=== PATIENT | male | born 1960 | race African-American/Black ===

== ENCOUNTER 2017-06-01 17:01 | Emergency (ER) | payer MEDICARE, OTHER ==
[~2017-06-01] VITALS: Ht 172.7 cm; Wt 73.5 kg
--- NOTE | ~2017-06-01 | CR72 ---
[facility] A Service of [facility] & [facility] RADIOLOGY TEXT RESULTS PATIENT: GALDINO LOPEZ LOCATION: [facility] : 62 UNIT #: [id number] AGE: [address]: Wes Puckett DO SEX: M ORDER DR: [id number] [facility] [address] [place], [place] [address] [id number] E MR#: [id number] Acc #: [id number] NAME: GALDINO LOPEZ : 1960 SEX: M STUDY DATE/TIME: 06/01/2017 18:20 UNIT: [facility] ROOM: STUDY DESCRIPTION: CR Chest Single View Portable Attending Physician: Wes Puckett D.O. Ordering Physician: Phyllis Kaur M.D. [facility] REPORT This report is preliminary unless electronic signature is present EXAM Single view of the chest dated 06/01/2017. COMPARISON Single view chest dated 02/03/2011. HISTORY Shortness of air 2 days. Rash for 1 1/2 weeks. FINDINGS Single view of the chest was obtained. No patchy alveolar infiltrates, pleural effusion or pneumothorax. Heart and mediastinum are within normal limits. No acute bony abnormality. Dictated by... Lele Richmond M.D. THIS IS AN ELECTRONICALLY VERIFIED REPORT Lele Richmond M.D. at 06/02/2017 3:28 PM CPR/pc TD: 06/02/2017 06:53 JOB #: [id number] MEDICAL IMAGING REPORT Page 1 of 1 COPY
--- NOTE | ~2017-06-01 | EKG ---
PATIENT: GALDINO LOPEZ UNIT #: [id number] Ventricular Rate: 71 BPM Atrial Rate: 71 BPM P-R Interval: 136 ms QRS Duration: 90 ms Q-T Interval: 386 ms QTC Calculation(Bezet): 419 ms P [place]: 57 degrees Calculated R [place]: 60 degrees Calculated T [place]: 51 degrees Diagnosis Line: Normal sinus rhythm Diagnosis Line: Normal ECG Diagnosis Line: When compared with ECG of 09-DEC-2015 13:52, Diagnosis Line: No significant change was found Diagnosis Line: Confirmed by NISHANT SOARES MD ([id number]) on 06/02/2017 Diagnosis Line: 12:09:19 AM INTERPRETING MD: FANY LUCIO
[~2017-06-01 17:01] MED LIST: AMITRYPTYLINE PO; AMOXICILLIN PO; FLEXERIL PO; FLOMAX0.4 MG PO; HCTZ PO; LORTAB 10/500 T1 TAB PO; LORTAB 5/500 TA1 TA1 PO; LORTAB 7.5-3251 EACH PO; METOPROLOL TART25 MG PO; MOBIC PO; NEURONTIN PO; NORVASC10 MG PO; PEN-VEE K PO; PERCOCET5/325 PO; VICODIN PO
[2017-06-01 18:31] LABS: URINE SOURCE CLEAN CATCH
[2017-06-01 18:38] LABS: URINE APPEARANCE CLEAR; URINE BILIRUBIN NEG (NEG); URINE BLOOD NEG (NEG); URINE COLOR DK YELLOW; URINE GLUCOSE NEG (NEG); URINE KETONE TRACE (NEG); URINE LEUKOCYTE ESTERASE NEG (NEG); URINE NITRATE NEG (NEG); URINE PROTEIN TRACE (NEG); URINE SPECIFIC GRAVITY 1.025 (1.003-1.035)
[2017-06-01 18:39] LABS: BASOPHIL% 0.2 % (0-2.5); EOSINOPHIL# 0.2 X10e3 (0-0.7); EOSINOPHIL% 1.9 % (0.0-7.0); HEMATOCRIT 49.7 % (38.0-50.0); HEMOGLOBIN 17.3 gm/dL (13.0-16.0); LYMPHOCYTE# 1.1 X10e3 (1.0-3.5); MEAN CORPUSCULAR HGB CONC 34.8 g/dL (30-36); MEAN PLATELET VOLUME 7.7 FL (6.5-11.5); MONOCYTE# 1.4 X10e3 (0-1.0); MONOCYTE% 15.5 % (3.0-12.0); NEUTROPHIL# 6.1 X10e3 (1.5-7.1); NEUTROPHIL% 69.4 % (40-75); PLATELET COUNT 238 X10e3 (140-420); RED CELL DISTRIBUTION WIDTH 13.1 % (11.0-15.5); WHITE BLOOD COUNT 8.8 X10e3 (4.0-10.5)
[2017-06-01 18:44] LABS: DIFF IND NO
[2017-06-01 18:47] LABS: CULTURE INDICATED? NO
[2017-06-01 18:48] LABS: INR 1.1; PARTIAL THROMBOPLASTIN TIME 27.6 SECONDS (23.5-31.3); PROTHROMBIN TIME (PATIENT) 11.4 SECONDS (10.0-11.7)
[2017-06-01 18:57] LABS: ALBUMIN SERUM 4.1 g/dL (3.5-5.0); ALKALINE PHOSPHATASE 106 U/L (32-92); ALT (SGPT) 17 U/L (10-40); AST (SGOT) 19 U/L (10-42); BILIRUBIN, DIRECT 0.1 mg/dL (0.0-0.2); BLOOD UREA NITROGEN 13 mg/dL (9-23); CALCIUM SERUM 9.6 mg/dL (8.4-10.2); CARBON DIOXIDE 25 mmol/L (22-31); CHLORIDE 104 mmol/L (100-111); GLOM FILT RATE Estimated 97.8 mL/min (>60); GLUCOSE FASTING 109 mg/dL (70-110); POTASSIUM 3.5 mmol/L (3.5-5.1); PROTEIN TOTAL SERUM 7.8 g/dL (6.0-8.3); SODIUM 137 mmol/L (135-145)
[2017-06-01 18:58] LABS: BILIRUBIN,TOTAL <0.1 mg/dL (0.2-2.0)
[2017-06-01 19:46] LABS: AMPHETAMINE NEG (NEG); BARBITURATES NEG (NEG); BENZODIAZEPINES NEG (NEG); COCAINE NEG (NEG); MARIJUANA POS (NEG); OPIATES NEG (NEG); TRICYCLIC ANTIDEPRESSANTS NEG (NEG); U METHADONE NEG (NEG)
[2017-06-01 19:47] LABS: POC - CKMB <1.0 ng/mL (0.0-7.9); POC - TROPONIN <0.05 ng/mL (<=0.05)
== END 2017-06-01 20:23 | disposition home or self-care (01) ==
LOC: CED 17:01 → CFTX 17:01 → CED 17:49
PROVIDERS: Emergency Medicine
DX: B02.9 Zoster without complications (principal); J44.9 Chronic obstructive pulmonary disease, unspecified; I10 Essential (primary) hypertension; F17.210 Nicotine dependence, cigarettes, uncomplicated; Z88.6 Allergy status to analgesic agent; Z79.899 Other long term (current) drug therapy; Z23 Encounter for immunization
CPT/HCPCS: 71010; 80048; 80076; 80307; 81003; 82553; 83880; 84484; 85025; 85610; 85730; 87806; 90471; 90715; 93005; 96374; 96375; 99285; J2270; J2405